=== PATIENT | female | born 1990 | race Caucasian/White ===

== ENCOUNTER 2022-05-15 11:55 | Outpatient (REF) | payer OTHER, SELFPAY ==
[2022-05-15 14:53] LABS: Hemoglobin A1C 5.7 % (<5.7)
[2022-05-15 15:02] LABS: Anion Gap 10.9 mmol/L (3-11); BUN 12 mg/dL (7-18); CO2 25.1 mmol/L (21.0-32.0); CREATININE 0.8 mg/dL (0.55-1.02); Calcium 9.1 mg/dL (8.5-10.1); Calculated LDL 128 mg/dL (<100); Chloride 106 mmol/L (98-107); Cholesterol 192 mg/dL (<200); Glucose 103 mg/dL (74-106); HDL Cholesterol 47 mg/dL (40-60); Potassium 4.8 mmol/L (3.5-5.1); Sodium 142 mmol/L (136-145); Triglyceride 86 mg/dL (<150)
== END 2022-05-15 11:56 | disposition home or self-care (01) ==
LOC: NCHCN 11:55
PROVIDERS: Visit Provider Physician Assistant
DX: E66.01 Morbid (severe) obesity due to excess calories (principal)
CPT/HCPCS: 80048; 80061; 83036

== ENCOUNTER 2022-05-25 17:48 | Outpatient (REF) | payer OTHER, SELFPAY ==
--- NOTE | 2022-05-25 16:40 | PAPFT_PTH ---
PATIENT: Evie BORGES LOC: [facility] U#:[id number] AGE/SX: 32/F ROOM: RE05/25/[address]: Rossy Persaud MD : [id number] BED: DIS: 05/25/2022 SPEC #: [id number] RECD: 05/25/22 17:57 STATUS: АНДРЕЙ REQ #: [id number] KEVIN: 05/25/22 16:[address]: Rossy Persaud DEPT: [facility] Cytology RECD BY: Riana De Leon ENTERED: 05/25/22 17:58 SP TYPE: PAPFT HANNA DR: Unknown,Unknown Tissues: 1 - CX/ENDOCX FOR PAP SMEARS Procedures: PAP THIN PREP/[facility] Screening HPV DNA PROBE Comments: [id number]
== END 2022-05-25 17:49 | disposition home or self-care (01) ==
LOC: LBN 17:48
PROVIDERS: Visit Provider Obstetrics & Gynecology
DX: R30.0 Dysuria (principal); Z12.4 Encounter for screening for malignant neoplasm of cervix; Z11.51 Encounter for screening for human papillomavirus (HPV)
CPT/HCPCS: 88142; 87086; 87624